=== PATIENT | female | born 1985 | race Caucasian/White ===

== ENCOUNTER 2025-06-06 08:12 | Outpatient (OUT) | payer OTHER, SELFPAY ==
--- OUTSIDE RECORDS SUMMARY | 2025-06-06 08:18 | XMS_ITS | Encounter Summary ---
Author Organization [facility] tem Address [id number] [address] [place] [address] Care Team Providers Care Carving Machine Operator Name Role Phone Seven Mcintyre MD Primary Care Provider [phone] Encounter Details Date Type Department Care Team (Late st Contact Info) Description 07/27/2022 [facility] [address] [place] [id number] External, Scanning Provider Social History Tobacco Use Types Packs/Day Years Used Date Smoking Tobacco: Never Smokeless Tobacco: Never Alcohol Use Standard Drinks/Week Comments Never 0 (1 standard drink = 0.6 oz pur e alcohol) PHQ-2 Answer Date Recorded Total Score 0 09/17/2021 Childcare Answer Date Recorded Childcare Unknown 09/29/2020 Employment Answer Date Recorded Employment Unknown 09/29/2020 Purpose - Life Answer Date Recorded Purpose and direction in life Unknown Comments No Sex and Gender Information Value Date Recorded Sex Assigned at Not on file Legal Sex Female 11:34 AM EDT Gender Identity Not on file Sexual Orientation Not on file documented as of this encounter Plan of Treatment Not on file documented as of this encounter Procedures Procedure Name Priority Date/Time Associated Diagnosis Comments NERVE CONDUCTION STUDY Routine 07/26/2022 documented in this encounter Results * Nerve Conduction Study (NCV) (07/26/2022) 07/26/2022 us Scanning Provider External NEUROLOGY ORDERABLES Final Result MANUALLY TRANSCRIBED RESULTS documented in this encounter Visit Diagnoses Not on filedocumented in this encounter Additional Health Concerns Assessment Noted Time PHQ-9 Depression Total Score: 0 09/17/19 22 3:56 PM EST documented as of this encounter Care Teams Carving Machine Operator Relationship Specialty Start Date End Date Seven Mcintyre MD [address] [place] [address], [address] [place] [address] PCP - General Pediatrics 04/24/23 documented as of this encounter
--- NOTE | 2025-06-06 08:20 | XR_ITS ---
XR/XR shoulder RT min 2V IMPRESSION: No acute bony injury or significant degenerative change. Impression dictated by: Migel Be M.D. 06/06/2025 8:38 AM Dictation Location: [place] [address] Electronically authenticated by: [id number] Y Date: 06/06/2025 08:38
== END 2025-06-06 08:13 | disposition home or self-care (01) ==
LOC: RAD 08:16
PROVIDERS: PCP Internal Medicine; Visit Provider Physician Assistant
DX: M25.511 Pain in right shoulder (principal)
CPT/HCPCS: 73030

== ENCOUNTER 2025-06-25 08:22 | Outpatient (OUT) | payer OTHER, SELFPAY ==
--- OUTSIDE RECORDS SUMMARY | 2025-06-25 08:24 | XMS_ITS | Clinical Summary ---
Author Organization [facility] tem Address [id number] [address] [place] [address] Care Team Providers Care Pump Attendant Name Role Phone Seven Mcintyre MD Primary Care Provider [phone] Allergies No known active allergies Medications phentermine (ADIPEX-P) 37.5 mg tabletIndication s:Class 1 obesity due to excess calories without serious comorbidity with body mass index (BMI) of 33.0 to 33.9 in adult Take 1 tablet (37.5 mg total) by mouth every morning before breakfast. 90 tablet 04/08/2025 Active Active Problems Problem Noted Date Diagnosed Date Abdominal pain, unspecified abdominal location 0 04/25/2023 Encounters Date Type Department Care Team Description 06/10/2025 Orders Only [facility] [address] [place] [address] External, Scanning Provider 04/08/2025 Refill [facility] [address] [place] [address] Laura Jj RMA Class 1 obesity due to excess calories without serious comorbidity with body mass index (BMI) of 33.0 to 33.9 in adult 04/04/2025 8:45 AM EDT Clinical Support [facility] [address] [place] [address] Seven Mcintyre MD 04/04/2025 Travel from Last 3 Months Family History Relation Name Status Comments Father Alive Mother Alive Social History Tobacco Use Types Packs/Day Years Used Date Smoking Tobacco: Never Smokeless Tobacco: Never Tobacco Cessation:Counseling Given: No Alcohol Use Standard Drinks/Week Comments Not Currently 0 (1 standard drink = 0.6 oz pur e alcohol) PHQ-2 Answer Date Recorded Total Score 0 02/17/2023 Housing Instability Answer Date Recorde d Are you worried or concerned that in the next two months you may not have stable housing that you own, rent or stay in as a part of a household? No 04/26/2023 Childcare Answer Date Recorded Childcare Unknown 09/29/2020 Employment Answer Date Recorded Employment Unknown 09/29/2020 Hunger Screening Answer Date Recorded Within the past 12 months we worried whether our food would run out before we got money to buy more. Never True 11/18/2023 Within the past 12 months th e food we bought just didn't last and we didn't have money to get more. Never True 11/18/2023 Purpose - Life Answer Date Recorded Purpose and direction in life Unknown Comments No Sex and Gender Information Value Date Recorded Sex Assigned at Not on file Legal Sex Female 11:34 AM EDT Gender Identity Not on file Sexual Orientation Not on file Last Filed Vital Signs Vital Sign Reading Time Taken Comments Blood Pressure 128/80 04/04/2025 8:46 AM EDT Pulse 90 04/04/2025 8:46 AM EDT Temperature 36.8 C (98.2 F) 11/01/2024 11:14 AM EST Respiratory Rate 18 11/18/2023 4:02 PM EST Oxygen Saturation 99% 11/01/2024 11:14 AM EST Inhaled Oxygen Concentration - - Weight 73.6 kg (162 lb 3.2 oz) 04/04/2025 8:46 A M EDT Height 155.8 cm (5' 1.34 ) 04/04/2025 8:46 AM ED T Body Mass Index 30.31 04/04/2025 8:46 AM EDT Plan of Treatment Health Maintenance Due Date Last Done Comments Adult BMI Follow Up Plan 2001 DTaP,Tdap and Td Vaccines (1 - Tdap) 2002 Depression Screening 02/18/2024 02/17/2023 Influenza Vaccine 05/13/2025 Tobacco Screening 12/31/2025 12/31/2024 Adult BMI Screening 04/04/2026 04/04/2025 Goals Goal Patient Goal Type Associated Problems Recent Progress Patient-Stated? Author home General Yes Caren Richey LSW Note: Evaluation of progress towards goal: feeling better, DC to home today Medical Devices Not on file Procedures Procedure Name Priority Date/Time Associated Diagnosis Comments XR SHOULDER RT MIN 2 VWS Routine 06/06/2025 from Last 3 Months Results * X-ray shoulder right minimum 2 views (06/06/2025) Anatomical Region Laterality Modality MSK, Upper Extremities, Shoulder Right Computed Radiography 06/06/2025 us Scanning Provider External IMG DIAGNOSTIC IMAGIN G ORDERABLES Final Result from Last 3 Months Insurance [employer] [address] Advance Directives * Full Code (Latest Code Status on File) Date Activated Date Inactivated Comments 04/25/2023 1:04 PM 04/26/2023 5:57 PM Care Teams Pump Attendant Relationship Specialty Start Date End Date Seven Mcintyre MD [address] [place] [address], [address] [place] [address] PCP - General Pediatrics 04/24/23
--- OUTSIDE RECORDS SUMMARY | 2025-06-25 08:24 | XMS_ITS | Encounter Summary ---
Author Organization [facility] Address [id number] [address] [place] [address] Care Team Providers Care Regional Merchandising Manager Name Role Phone Seven Mcintyre MD Primary Care Provider [phone] Encounter Details Date Type Department Care Team (Late st Contact Info) Description 07/27/2022 [facility] [address] [place] [phone] External, Scanning Provider Social History Tobacco Use [...] documented as of this encounter Care Teams Regional Merchandising Manager Relationship Specialty Start Date End Date Seven Mcintyre MD [address] [place] [address], [address] [place] [address] PCP - General Pediatrics 04/24/23 documented as of this encounter
--- OUTSIDE RECORDS SUMMARY | 2025-06-25 08:24 | XMS_ITS | Encounter Summary ---
Author Organization [facility] tem Address [id number] [address] [place] [address] Care Team Providers Care Enterprise Project Manager Name Role Phone Seven Mcintyre MD Primary Care Provider [phone] Encounter Details Date Type Department Care Team (Late st Contact Info) Description 06/10/2025 Orders Only [facility] [address] [place] [phone] External, Scanning Provider Social History Tobacco Use Types Packs/Day Years Used Date Smoking Tobacco: Never Smokeless Tobacco: Never Alcohol Use Standard Drinks/Week Comments Not Currently [...] on file documented as of this encounter Goals Goal Patient Goal Type Associated Problems Recent Progress Patient-Stated? Author home General Yes Caren Richey LSW Note: Evaluation of progress towards goal: feeling better, DC to home today documented as of this encounter Procedures Procedure Name Priority Date/Time Associated Diagnosis Comments XR SHOULDER RT MIN 2 VWS Routine 06/06/2025 documented in this encounter Results * X-ray shoulder right minimum 2 views (06/06/2025) Anatomical Region Laterality Modality MSK, Upper Extremities, Shoulder Right Computed Radiography 06/06/2025 us Scanning Provider External IMG DIAGNOSTIC IMAGIN G ORDERABLES Final Result documented in this encounter Visit Diagnoses Not on filedocumented in this encounter Additional Health Concerns Assessment Noted Time PHQ-9 Depression Total Score: 0 02/18/20 23 3:46 PM EDT documented as of this encounter Care Teams Enterprise Project Manager Relationship Specialty Start Date End Date Seven Mcintyre MD [address] [place] [address], [address] [place] [address] PCP - General Pediatrics 04/24/23 documented as of this encounter
--- NOTE | 2025-06-25 08:27 | MR_ITS ---
[place] [id number] Patient Name: RAJ GAUTAM MRN: [id number] date: 1985 Sex: F Assigned Patient Location: MRI Current Patient Location: MRI Accession/Order Number: [id number] Exam Date: 06/25/2025 08:40 Report Date: 06/25/2025 14:49 At the request of: EVELYNE HERRING Procedure: MR shoulder RT wo con EXAMINATION: MRI OF THE RIGHT SHOULDER CLINICAL HISTORY: Right Shoulder Pain COMPARISON: Right shoulder series 06/06/2025 TECHNIQUE: Multiecho, multiplanar imaging was performed with use of an extremity coil. No contrast was administered. FINDINGS: Bones/Joints: Subacromial/subdeltoid bursitis. No significant joint effusion. Inferior glenohumeral ligament appears unremarkable. Degenerative changes involving the AC and glenohumeral joints with small amount of bone marrow edema/cystic change involving the humeral head. No fracture line. Labrum: Normal Biceps tendon: Normal Supraspinatus: Tendinosis with partial-thickness tear joint side in the region of the musculotendinous junction approximately 1 cm from the greater tubercle. No full-thickness tear is seen. Infraspinatus: Normal Teres Minor: Normal Subscapularis: Tendinosis with partial thickness tear near the bicipital groove. MR/MR shoulder RT wo con IMPRESSION: MILD DEGENERATIVE CHANGES INVOLVING THE AC AND GLENOHUMERAL JOINTS WITH SUBACROMIAL/SUBDELTOID BURSITIS. NO FRACTURE. TENDINOSIS WITH PARTIAL-THICKNESS TEAR JOINT SIDE OF THE SUPRASPINATUS IN THE REGION OF THE MUSCULOTENDINOUS JUNCTION. TENDINOSIS WITH PARTIAL-THICKNESS TEAR OF THE SUBSCAPULARIS NEAR THE BICIPITAL GROOVE. Impression dictated by: Hank Soto Jr., D.O. 06/25/2025 2:49 PM Dictation Location: [place] [address] Electronically authenticated by: [id number] Y Date: 06/25/2025 14:49
== END 2025-06-25 08:23 | disposition home or self-care (01) ==
LOC: MRI 08:22
PROVIDERS: PCP Internal Medicine; Visit Provider Physician Assistant
DX: M25.511 Pain in right shoulder (principal); M77.8 Other enthesopathies, not elsewhere classified
CPT/HCPCS: 73221